=== PATIENT | male | born 1980 | race Caucasian/White ===

== ENCOUNTER 2019-05-07 13:07 | Emergency (ER) | payer BC | END 2019-05-07 13:45 | disposition left against medical advice (07) | LOC: UCCORT 13:07 | DX: Z53.21 Procedure and treatment not carried out due to patient leaving prior to being seen by health care provider (principal) ==

== ENCOUNTER 2019-05-07 13:41 | Emergency (ER) | payer BC ==
[2019-05-07 16:20] VITALS: BP 126/76
--- NOTE | 2019-05-07 16:27 | UC ---
Hand/Wrist HPI - HPI Summary HPI Summary: 39-year-old male who slipped on the ice about 2 weeks ago injuring his right wrist. He states it was a minor injury and about 1 week later he was able to go bowling and did not have pain until the next day was on 29 April. Since then he's been wrapping it but with continued pain of the right wrist. - History Of Current Complaint Chief Complaint: UCUpperExtremity Stated Complaint: RIGHT WRIST COMPLAINT Time Seen by Provider: 05/07/19 16:12 Hx Obtained From: Patient ?: No Onset/Duration: Sudden Onset Severity Initially: Mild Severity Currently: Mild Pain Intensity: 5 Character Of Pain: Dull, Aching Aggravating Factor(s): Movement - Patient states he feels more pain in the distal ulnar area when he pinches his index finger and thumb together or when he moves his wrist with ulnar deviation to the right and left. Alleviating Factor(s): Rest Associated Signs And Symptoms: Positive: Negative - Allergies/Home Medications Allergies/Adverse Reactions: Allergies Allergy/AdvReac Type Severity Reaction Status Date / Time No Known Allergies Allergy Verified 05/07/19 16:20 Home Medications: Home Medications NK [No Home Medications Reported] 05/07/19 [History Confirmed 05/07/19] PMH/Surg Hx/FS Hx/Imm Hx Previously Healthy: Yes - Surgical History Surgical History: None - Family History Known Family History: Positive: Non-Contributory - Social History Occupation: Employed Full-time Alcohol Use: Occasionally Substance Use Type: None Smoking Status (MU): Never Smoked Tobacco Review of Systems All Other Systems Reviewed And Are Negative: Yes Musculoskeletal: Positive: Other: - Patient has full range of motion but he does have pain in the ulnar area when he is pinching his index finger and thumb together as well as ulnar deviation. Is Patient Immunocompromised?: No Physical Exam Triage Information Reviewed: Yes Appearance: Well-Appearing, No Pain Distress, Well-Nourished Vital Signs: Initial Vital Signs Temp 97.8 F 05/07/19 16:17 Pulse 66 05/07/19 16:17 Resp 15 05/07/19 16:17 BP 126/76 05/07/19 16:17 Pulse Ox 100 05/07/19 16:17 Vital Signs Reviewed: Yes Musculoskeletal: Positive: Strength Intact, ROM Intact, Other: - Full range of motion, pain in the distal ulnar area with pinching his index finger and thumb together as well as with ulnar deviation. There is no erythema, deformity, bruising or swelling noted. Scaphoid is nontender on palpation Neurological Exam: Normal Psychological Exam: Normal Skin Exam: Normal Hand/Wrist Course/Dx - Course Course Of Treatment: Right wrist x-ray:INDICATION: Right ulnar-sided wrist pain COMPARISON: None. TECHNIQUE: 3 views right wrist. REPORT: The visualized bones are properly aligned and well corticated. The joint spaces are normal.There is no fracture, dislocation or other focal osseous abnormality. IMPRESSION: Normal radiograph of the right wrist. If the patient's symptoms persist, follow-up imaging is recommended. A cockup splint is applied for comfort. He may apply heat to the sore area and take Motrin every 8 hours. He is to elevate as much as possible and follow-up with the orthopedist if no improvement in 4 or 5 days - Differential Dx/Diagnosis Provider Diagnosis: Wrist sprain Discharge ED - Sign-Out/Discharge Documenting (check all that apply): Patient Departure All imaging exams completed and their final reports reviewed: Yes - Discharge Plan Condition: Good Disposition: HOME Patient Education Materials: Wrist Sprain (ED) Referrals: Antoni Reynolds MD [Primary Care Provider] - Mona Ortega MD [Medical Doctor] - Additional Instructions: Keep the wrist splint on for comfort. Follow-up with the orthopedist in 4 or 5 days if no improvement. May take Motrin every 8 hours for pain, elevate as much as possible. May apply heat to the sore area. - Billing Disposition and Condition Condition: GOOD Disposition: Home - Attestation Statements Provider Attestation: I was available for consult. This patient was seen by the [facility]. The patient was not presented to , seen by or examined by -Sara Guzman MD
== END 2019-05-07 17:05 | disposition home or self-care (01) ==
LOC: UCCORT 13:41
DX: S63.501A Unspecified sprain of right wrist, initial encounter (principal); W00.0XXA Fall on same level due to ice and snow, initial encounter; Y92.9 Unspecified place or not applicable
CPT/HCPCS: 99202; G0463